=== PATIENT | female | born 1980 | race Caucasian/White ===

== ENCOUNTER → 2020-12-08 | Outpatient (CLI) | payer OTHER | END | disposition home or self-care (01) | LOC: CFH 08:31 | PROVIDERS: ATTEND Family Medicine | DX: N60.02 Solitary cyst of left breast (principal); N60.01 Solitary cyst of right breast; R22.31 Localized swelling, mass and lump, right upper limb; N63.31 Unspecified lump in axillary tail of the right breast | CPT/HCPCS: 76642; 77062; 77066; G0279 ==